=== PATIENT | male | born 1950 | race Caucasian/White ===

== ENCOUNTER 2019-01-15 11:18 | Day surgery (SDC) | payer OTHER ==
[2019-01-14 17:17] VITALS: BMI 28.1
[2019-01-15] MEDS ORDERED: oxyCODONE HCL 5 MG TABLET PO PRN (14:02)
[2019-01-15] MEDS ORDERED: ONDANSETRON 4 MG/2 ML VIAL IVPUSH PRN (14:02)
[2019-01-15] MEDS ORDERED: LACTATED RINGERS SOLUTION 1,000 ML IV SCH ×2 (14:15→20:00)
[2019-01-15] MEDS ORDERED: PROPOFOL 20 ML ONE ×2 (14:46→16:13)
[2019-01-15] MEDS ORDERED: MIDAZOLAM HCL 2 MG/2 ML SINGLE DOSE VIAL ONE (14:46)
[2019-01-15] MEDS ORDERED: ceFAZolin SODIUM 1 GM VIAL IVPB ONE (15:10)
[2019-01-15] MEDS ORDERED: ePHEDrine SULFATE 50 MG/1 ML AMPULE ONE (15:17)
[2019-01-15] MEDS ORDERED: EPHEDRINE SULFATE/0.9% NACL/PF 50 MG/10 ML SYRINGE NR ONE (15:17)
--- NOTE | 2019-01-15 15:58 | PREOP ---
DATE OF ADMISSION: 01/15/2019 DATE OF DICTATION: 01/15/2019 HISTORY OF PRESENT ILLNESS: Patient is a 68-year-old male with history of prostatism, including frequency, urgency, nocturia x4, and feelings of incomplete bladder emptying. Residual urine has ranged between 100 and 180 cc. Patient also has history of high blood pressure. He has undergone foot surgery. ALLERGIES: He denies any allergies. PHYSICAL EXAMINATION: General: Revealed a well-developed, adult male. Abdomen: Soft. Chest: Clear. Genitourinary: Genitalia are atraumatic. Phallus is normal. Prostate is 3+, smooth, benign, nontender; status post biopsy and negative findings. Extremities: Revealed full range of motion with no cyanosis, clubbing or edema. LABORATORY DATA: PSA 6.5. BUN and creatinine 7 over 1.1. IMPRESSION: BPH with lower urinary tract symptoms. PLAN: TURP, TUVP. [place] [id number]
--- NOTE | 2019-01-15 16:38 | OP ---
Operative Note - Note: Operative Date: 01/15/19 Pre-Operative Diagnosis: BPH w/ LUTS Operation: Cystoscopy TURP/TUVP Findings: Trilobar hypertrophy of prostate 6 cm prosthetic urethra, grade II trabeculation bladder Post-Operative Diagnosis: Same as Pre-op Surgeon: Abram Huston Anesthesia: General Specimens Removed: prostate chips and urine Drains & Tubes with Location: [address] Drains, Volume Out (mls): 0 Blood Volume Replaced (mls): 0 Operative Report Dictated: Yes
[2019-01-15] MEDS ORDERED: ACETAMINOPHEN 500 MG TABLET (FP) PO PRN (16:41)
[2019-01-15] MEDS ORDERED: ACETAMINOPHEN INJECTION 100 ML IVPB ONE (17:27)
--- NOTE | 2019-01-15 17:36 | HP ---
DATE OF ADMISSION: 01/15/2019 PREOPERATIVE DIAGNOSIS: Benign prostatic hypertrophy with lower urinary tract symptoms. POSTOPERATIVE DIAGNOSIS: Benign prostatic hypertrophy with lower urinary tract symptoms with grade 2 trabeculation of the bladder. OPERATIVE PROCEDURE: Cystourethroscopy, transurethral resection and transurethral vaporization of the prostate. ANESTHESIA: General. DESCRIPTION OF PROCEDURE: Under the above-stated anesthesia, the patient was prepped and draped in the usual sterile manner. He was placed in the dorsal lithotomy position. External genitalia revealed no hernias or hydroceles. Meatus was adequate. Phallus was normal. Cystoscopy under direct vision revealed a normal urethra. Prostatic urethra revealed trilobar hypertrophy of the prostate. There was lateral lobe kissing. The prostatic urethra measured 6 cm in length. The bladder was entered and urine was collected for culture and sensitivity. Inspection of the bladder revealed grade 2 trabeculation. No lesions were noted. No calculi were seen. Ureteral orifices were within normal limits with efflux of clear urine. Dome and lateral leiva were clear. A bipolar resectoscope was inserted and resection of the prostate was commenced at the 6 o'clock position of the right lateral lobe. This was carried on up to the 12 o'clock position. The same thing was done to the left lateral lobe. Lastly, the median lobe was resected. Hemostasis was secured with electrocoagulation. Prostate chips were evacuated with an Ryla evacuator. A VaporTrode was then introduced and excess prostate tissue was vaporized. Again, cauterization was established. The bladder was kept full. The resectoscope was removed. A 26-[place], three-way 30-mL Sutton was placed. This was connected to continuous bladder irrigation. Estimated blood loss was 50 mL. The patient tolerated the procedure well and returned to the recovery room in good condition. [place] [id number]
[2019-01-15] MEDS: CEPHALEXIN MONOHYDRATE 500 MG CAPSULE (UD) PO SCH (21:43)
[2019-01-16] MEDS: CEPHALEXIN MONOHYDRATE 500 MG CAPSULE (UD) PO SCH ×2 (05:56→15:57)
[2019-01-16] MEDS ORDERED: HYDROCHLOROTHIAZIDE 12.5 MG CAPSULE (FP) PO SCH (10:00)
[2019-01-16] MEDS ORDERED: LOSARTAN POTASSIUM 50 MG TABLET (FP) PO SCH (10:00)
[2019-01-16] MEDS ORDERED: PATIENT'S OWN MEDICATION (NON-FORMULARY) (Losartan/Hydrochlorothiazide [Losartan-Hctz 100- PO SCH (10:00)
--- NOTE | 2019-01-16 14:48 | PN ---
Progress Note (short form) - Note Progress Note: UROLOGY NOTE. POD#1 S/P TURP/TUVP, BAÑUELOS WITH CBI IS CLEAR, ABD.-SOFT,N/T PLAN-D /C CBI AND D/C HOME WITH BAÑUELOS TO LEG BAG
[2019-01-16 16:01] VITALS: BP 105/70; PULSE 86; TEMP 97.9
--- NOTE | 2019-01-17 16:59 | PATH ---
Surgical Pathology Report Patient Name: CHACE RAMIREZ Med. Rec. #: [id number] /Age/Gender: 1950 (Age: 68) / M Account: [id number] Location: AMBULATORY SURG Taken: 01/15/2019 Received: 01/16/2019 Reported: 01/17/2019 Physicians: Abram Huston M.D. Specimen(s) Received PROSTATE CHIPS Clinical History Hypertrophy of prostate Final Diagnosis PROSTATE CHIPS, TRANSURETHRAL RESECTION OF THE PROSTATE: BENIGN PROSTATIC TISSUE WITH GLANDULAR AND STROMAL HYPERPLASIA, ACUTE AND CHRONIC PROSTATITIS. ADJACENT UROTHELIAL MUCOSA WITH FOCAL ACUTE AND CHRONIC INFLAMMATION. Comment: Immunohistochemistry stain [id number] (blocks 7 and block 8) performed and interpreted at [facility] highlights intact basal layer of the glands in the areas of interest, supports benign prostatic tissue. Positive and negative controls (internal if applicable) show appropriate results. Electronically Signed Rufino Bess M.D. Gross Description Received in formalin labeled "prostate chips," is a 9 g, 7.0 x 6.0 x 0.6 cm aggregate of abundant larry, firm to rubbery portions of tissue, consistent with prostate chips. The specimen is entirely submitted in 8 cassettes. /01/16/2019 saudi01/16/2019
== END 2019-01-16 16:59 | disposition home or self-care (01) ==
LOC: JASU-SURG 11:18 → JASUSAT 11:18 → J8W 20:46 → JASUSAT 01-16 16:59
PROVIDERS: ATTEND Urology
PROC: 0VT08ZZ Resection of Prostate, Via Natural or Artificial Opening Endoscopic (ICD-10-PCS; principal; 2019-01-15 14:30)
DX: N40.1 Benign prostatic hyperplasia with lower urinary tract symptoms (principal); N32.89 Other specified disorders of bladder
CPT/HCPCS: 87086; 94760; J0131